=== PATIENT | female | born 1995 | race Caucasian/White ===

== ENCOUNTER 2021-09-05 06:23 | Day surgery (SDC) | payer OTHER ==
[2021-09-05] MEDS ORDERED: Ondansetron 4 MG/2 ML SDV IVPUSH ONE (06:47)
[2021-09-05] MEDS ORDERED: fentaNYL 100 MCG/2 ML SDV IVPUSH ONE (06:47)
[2021-09-05] MEDS ORDERED: Lactated Ringers 1,000 ML IV ONE (06:47)
[2021-09-05] MEDS ORDERED: Sodium Chloride 0.9% 1,000 ML IV SCH (07:45)
[2021-09-05] MEDS ORDERED: Metoclopramide 10 MG/2 ML SDV IVPUSH ONE (08:05)
[2021-09-05] MEDS ORDERED: HYDROmorphone 1 MG/ML Syringe IVPUSH ONE (08:05)
[2021-09-05] MEDS ORDERED: Misoprostol 200 MCG Tab PO ONE (09:52)
[2021-09-05] MEDS ORDERED: Lidocaine 1% 6 ML ONE (11:09)
[2021-09-05] MEDS ORDERED: Succinylcholine 200 MG/10 ML MDV ONE (11:09)
[2021-09-05] MEDS ORDERED: fentaNYL 250 MCG/5 ML SDV ONE (11:10)
[2021-09-05] MEDS ORDERED: Propofol 200 MG/20 ML SDV ONE (11:10)
[2021-09-05] MEDS ORDERED: Ondansetron 4 MG/2 ML SDV ONE (11:16)
[2021-09-05] MEDS ORDERED: Metoclopramide 10 MG/2 ML SDV ONE (11:16)
[2021-09-05] MEDS ORDERED: Midazolam 1 MG/ML 2 ML SDV ONE (11:19)
[2021-09-05] MEDS ORDERED: Dexamethasone 4 MG/ML 5 ML MDV ONE (11:28)
[2021-09-05] MEDS ORDERED: Lactated Ringers 1,000 ML ONE (11:32)
[2021-09-05] MEDS ORDERED: Dexmedetomidine 200 MCG/2 ML SDV ONE (11:45)
[2021-09-05] MEDS ORDERED: Ibuprofen 600 MG Tab PO PRN (11:48)
[2021-09-05] MEDS ORDERED: Ketorolac 30 MG/ML SDV ONE (11:49)
== END 2021-09-05 13:25 | disposition home or self-care (01) ==
LOC: JD.ED 06:23 → JD.SDS 10:53
PROVIDERS: ATTEND Obstetrics & Gynecology
DX: O03.4 Incomplete spontaneous abortion without complication (principal); Z98.890 Other specified postprocedural states
CPT/HCPCS: 36415; 59812; 76815; 80053; 84702; 85025; 86850; 86900; 86901; A9270; J0330; J1100; J1170; J1885; J2250; J2405; J2704; J2765; J3010; J7030; J7120; 01965